=== PATIENT | female | born 1950 | race Caucasian/White ===

== ENCOUNTER → 2017-09-14 | Outpatient (CLI) | payer OTHER ==
[~2017-09-14] MED LIST: AMIT50; Aldactone25 MG; Bactrim Ds Tab1 EACH PO; CYCL10; DEXL60CA3; FENOFIBRATE145 MG; FERREX 28 TABL1 EACH; LOSA25 PO; METF500 PO; Norco 10-325 T1 EACH PO; PIOG15; SUMA25 PO; Zofran Odt4 MG SL
== END | disposition home or self-care (01) ==
LOC: PLD 07:58 → LAB SHORT 07:58
DX: C44.712 Basal cell carcinoma of skin of right lower limb, including hip (principal); C44.612 Basal cell carcinoma of skin of right upper limb, including shoulder
CPT/HCPCS: 88305

== ENCOUNTER → 2018-03-07 | Outpatient (CLI) | payer OTHER | LOC: PLD 14:15 → LAB SHORT 14:15 | DX: D48.5 Neoplasm of uncertain behavior of skin (principal) | CPT/HCPCS: 88305 ==

== ENCOUNTER → 2018-08-29 | Outpatient (CLI) | payer OTHER | END | disposition home or self-care (01) | LOC: PLD 08:09 → LAB SHORT 08:09 | DX: L57.0 Actinic keratosis (principal) | CPT/HCPCS: 88305 ==

== ENCOUNTER → 2019-04-13 | Outpatient (CLI) | payer OTHER ==
[2019-04-13 08:14] LABS: Source, Urine Clean Catch
[2019-04-13 12:59] LABS: Bilirubin, Urine Neg (Neg); Blood, Urine 1+ (Neg); Glucose Qualitative, Urine Neg (Neg); Ketones, Urine Neg (Neg); Leukocyte Esterase, Urine 2+ (Neg); Nitrite, Urine Neg (Neg); Protein, Urine Neg (Neg); Urobilinogen, Urine NORM (Normal); pH, Urine 6.5 (5.0-8.0)
[2019-04-13 13:18] LABS: Appearance, Urine Clear (Clear); Color, Urine Yellow (P-Yellow)
[2019-04-13 13:19] LABS: Bacteria Few /hpf; Red Blood Cells, Urine 0-2 /hpf (0-2); Squamous Epithelial Cells Rare /hpf (Few)
[2019-04-13 18:00] LABS: Albumin, Blood 4.1 g/dL (3.4-5.0); Anion Gap 6 mmol/L (6-16); Blood Urea Nitrogen 27 mg/dL (8-24); Bun/Creatinine Ratio 25.7 (12.0-20.0); CO2, Blood 27 mmol/L (21-32); Calcium, Blood 10.1 mg/dL (8.5-10.1); Chloride, Blood 102 mmol/L (98-108); Creatinine, Blood 1.05 mg/dL (0.40-1.00); Glomerular Filtration Rate 55 (60-); Glucose, Blood 90 mg/dL (70-99); Phosphorus, Blood 3.5 mg/dL (2.5-4.9); Potassium, Blood 3.7 mmol/L (3.5-5.5); Sodium, Blood 135 mmol/L (136-145)
== END | disposition home or self-care (01) ==
LOC: LAB 08:12 → LAB SHORT 08:12
PROVIDERS: Specialist
DX: N18.3 Chronic kidney disease, stage 3 (moderate) (principal)
CPT/HCPCS: 36415; 80069; 81001; 87086

== ENCOUNTER → 2019-08-24 | Outpatient (CLI) | payer OTHER | LOC: PLD 07:53 → LAB SHORT 07:53 | DX: C44.612 Basal cell carcinoma of skin of right upper limb, including shoulder (principal); C44.519 Basal cell carcinoma of skin of other part of trunk; C44.619 Basal cell carcinoma of skin of left upper limb, including shoulder; L57.0 Actinic keratosis | CPT/HCPCS: 88305 ==

== ENCOUNTER → 2021-03-31 | Outpatient (CLI) | payer OTHER | END | disposition home or self-care (01) | LOC: LAB SHORT 13:45 | DX: C44.712 Basal cell carcinoma of skin of right lower limb, including hip (principal); C44.519 Basal cell carcinoma of skin of other part of trunk | CPT/HCPCS: 88305 ==

== ENCOUNTER → 2021-04-30 | Outpatient (CLI) | payer OTHER | END | disposition home or self-care (01) | LOC: LAB SHORT 15:43 → LAB 15:43 | DX: C44.519 Basal cell carcinoma of skin of other part of trunk (principal); C44.712 Basal cell carcinoma of skin of right lower limb, including hip | CPT/HCPCS: 88305 ==

== ENCOUNTER → 2021-07-05 | Outpatient (CLI) | payer OTHER | END | disposition home or self-care (01) | LOC: LAB SHORT 16:45 → LAB 16:45 | DX: R30.0 Dysuria (principal) | CPT/HCPCS: 87086 ==

== ENCOUNTER 2022-12-02 08:11 | Day surgery (SDC) | payer OTHER ==
[~2022-12-02] VITALS: Ht 160 cm; Wt 60.3 kg
[2022-12-02] MEDS ORDERED: NIFE10 (08:40)
[2022-12-02] MEDS ORDERED: Bystolic2.5 MG (08:40)
== END 2022-12-02 10:35 | disposition home or self-care (01) ==
LOC: ORSCSDS 08:11
PROVIDERS: Internal Medicine Gastroenterology
PROC: 0DBC8ZX Excision of Ileocecal Valve, Via Natural or Artificial Opening Endoscopic, Diagnostic (ICD-10-PCS; principal; 2022-12-02 09:30)
DX: Z12.11 Encounter for screening for malignant neoplasm of colon (principal); D12.0 Benign neoplasm of cecum; K57.30 Diverticulosis of large intestine without perforation or abscess without bleeding; G47.33 Obstructive sleep apnea (adult) (pediatric); E11.9 Type 2 diabetes mellitus without complications; Z87.891 Personal history of nicotine dependence; I10 Essential (primary) hypertension; Z79.899 Other long term (current) drug therapy; Z79.84 Long term (current) use of oral hypoglycemic drugs
CPT/HCPCS: 82947; 88305; J2704; J7120

== ENCOUNTER → 2022-12-29 | Outpatient (CLI) | payer OTHER ==
[~2022-12-29] MED LIST changes: +Bystolic2.5 MG; +NIFE10
== END | disposition home or self-care (01) ==
LOC: LAB SHORT 08:08 → PLD 08:08 → LAB 08:08
DX: C44.41 Basal cell carcinoma of skin of scalp and neck (principal)
CPT/HCPCS: 88305

== ENCOUNTER 2023-06-21 11:19 | Day surgery (SDC) | payer OTHER ==
[~2023-06-21] VITALS: Ht 160 cm; Wt 62.7 kg
[~2023-06-21 11:19] MED LIST changes: -AMIT50; +AMIT50 PO; +Bystolic10 MG PO; -CYCL10; +CYCL10 PO; -DEXL60CA3; +DEXL60CA3 PO; +ESTRADIOL; -FENOFIBRATE145 MG; +FENOFIBRATE145 MG PO; -FERREX 28 TABL1 EACH; +FERREX 28 TABL1 EACH PO; +HYDROCHLOROTH12.5 MG PO; +NIFE90ER PO; +PAXLOVID 150-11 EACH PO; -PIOG15; +PIOG15 PO; +POTA10T PO
[2023-06-21] MEDS ORDERED: NEBI10 PO (11:31)
[2023-06-21] MEDS ORDERED: METF500 PO (11:39)
[2023-06-21] MEDS ORDERED: HYDCHL25 PO (11:43)
[2023-06-21] MEDS ORDERED: LOSA50 (11:43)
[2023-06-21] MEDS ORDERED: POTA10T PO (11:43)
[2023-06-21] MEDS ORDERED: Adalat/Procardi20 MG PO (11:43)
[2023-06-21] MEDS ORDERED: DOXA1 PO (11:43)
[2023-06-21 12:57] VITALS: BP 129/63
== END 2023-06-21 13:15 | disposition home or self-care (01) ==
LOC: ORSCSDS 11:19
PROVIDERS: Internal Medicine Gastroenterology
PROC: 0DBK8ZX Excision of Ascending Colon, Via Natural or Artificial Opening Endoscopic, Diagnostic (ICD-10-PCS; principal; 2023-06-21 12:45)
DX: Z12.11 Encounter for screening for malignant neoplasm of colon (principal); Z86.010 Personal history of colon polyps; D12.2 Benign neoplasm of ascending colon; K57.30 Diverticulosis of large intestine without perforation or abscess without bleeding; G47.30 Sleep apnea, unspecified; E11.9 Type 2 diabetes mellitus without complications; K21.9 Gastro-esophageal reflux disease without esophagitis; Z79.84 Long term (current) use of oral hypoglycemic drugs; Z79.899 Other long term (current) drug therapy
CPT/HCPCS: 82947; 88305; J2704; J7120